=== PATIENT | female | born 1985 | race Caucasian/White ===

== ENCOUNTER 2019-01-16 07:58 | Emergency (ER) | payer OTHER ==
[2019-01-16] MEDS ORDERED: Ketorolac Tromethamine 60 MG/2 ML VIAL ONE (08:19)
--- NOTE | 2019-01-16 08:31 | RAD ---
Exam: Left shoulder 2 views: HISTORY: Injury from trauma FINDINGS: No fracture, dislocation, or other acute process. IMPRESSION: Unremarkable left shoulder.
== END 2019-01-16 08:42 | disposition home or self-care (01) ==
LOC: SCSER 07:58
DX: S20.212A Contusion of left front wall of thorax, initial encounter (principal); W22.8XXA Striking against or struck by other objects, initial encounter; F17.210 Nicotine dependence, cigarettes, uncomplicated; Z79.82 Long term (current) use of aspirin; Z86.73 Personal history of transient ischemic attack (TIA), and cerebral infarction without residual deficits
CPT/HCPCS: 96372; J1885

== ENCOUNTER 2023-03-19 10:56 | Inpatient (IN) | payer BC, SELFPAY ==
[2023-03-19] MEDS ORDERED: Iopamidol-370 76% 500 ML MDV (1 ML CHARGE) ONE (11:00)
[2023-03-19 11:32] LABS: Hematocrit 41.8 % (36.0-47.0); Hemoglobin 14.4 g/dL (12.0-16.0); Mean Corpuscular HGB CONC 34.4 g/dL (32.0-36.0); Mean Corpuscular Hemoglobin 27.7 pg (27.0-31.0); Mean Corpuscular Volume 80.5 fl (78.0-98.0); Mean Platelet Volume 11.5 fL (7.4-10.4); Platelet Count 287 10x3/uL (130-400); RBC Distribution Width 13.2 % (11.5-14.5); Red Blood Cell (RBC) Count 5.19 mill/uL (4.20-5.40)
[2023-03-19 11:35] LABS: Delete Auto Diff?? YES; Manual Diff?? YES
[2023-03-19] MEDS ORDERED: Ondansetron PF 4 MG/2 ML Vial ONE (11:44)
[2023-03-19] MEDS ORDERED: Acetaminophen 325 MG/10.15 ML UDCUP ONE (11:44)
[2023-03-19 11:49] LABS: BHCG - Serum Negative (NEGATIVE); Pregs Control Background? CLEAR/WHITE (CLR/WHITE); Pregs Control Bar Appear? YES (CONTROL BAR)
[2023-03-19 11:51] LABS: INR-International Normal Ratio 1.2; Prothrombin Time 15.4 sec (12.0-14.7)
[2023-03-19 11:57] LABS: Band 12 % (5-11); CellaVision Operator ID LAB.GE; Large Platelets 0.9 % (0-5); Lymphocytes 17 % (21-51); Metamyelocyte 2 % (0-0); Monocytes 9 % (0-10); Neutrophil 40 % (42-75); Platelet Adequacy Comment Platelets Normal; Polychromasia SLIGHT = 2-3 cells HPF (0-2); Reactive Lymphocytes 20 % (0-10); Total Cell Count 107
[2023-03-19 12:04] LABS: ALT (SGPT) 76 U/L (8-55); AST (SGOT) 80 U/L (5-34); Albumin 3.5 g/dL (3.5-5.0); Alkaline Phosphatase 81 U/L (40-110); Anion Gap 16 mmol/L (10-20); BUN (Urea Nitrogen) 10 mg/dL (7.0-18.7); Bilirubin, Total 0.7 mg/dL (0.2-1.2); Calc. Creatinine Clearance 0 mL/min (70-130); Calcium 8.9 mg/dL (7.8-10.44); Carbon Dioxide 24 mmol/L (22-29); Chloride 96 mmol/L (98-107); Estimated GFR 106; Globulin 3.8 g/dL (2.4-3.5); Glucose 102 mg/dL (70-105); Lipase 44 U/L (8-78); Magnesium 1.6 mg/dL (1.6-2.6); Protein, Total 7.3 g/dL (6.0-8.3); Sodium 133 mmol/L (136-145)
[2023-03-19 12:46] LABS: Bilirubin 1+ (Negative); Blood, Urine Negative (Negative); CAUTI Indications for Culture Fever or rigors; Clarity Clear (Clear); Glucose, Urine (Dipstick) Normal (Negative); Ketone, Urine 150 mg/dL (Negative); Leukocyte 25 Leu/uL (Negative); Nitrite Negative (Negative); Protein, Urine (Dipstick) 100 mg/dL (Neg-Trace); RBC/HPF 0-3 HPF (0-3); Squamous Epithelial 0-3 HPF (0-3); pH, Urine 6.5 (5.0-9.0)
[2023-03-19 12:50] LABS: Specific Gravity, Urine 1.052 (1.002-1.036)
[2023-03-19 12:53] LABS: Bacteria/HPF 1+ HPF (None Seen)
[2023-03-19 12:54] LABS: Urine Culture Reflex No No
[2023-03-19] MEDS ORDERED: cefTRIAXone (ROCEPHIN) 1 GM VIAL ONE (14:10)
[2023-03-19] MEDS ORDERED: Senokot S 8.6-50 MG TAB PO PRN (14:28)
[2023-03-19] MEDS ORDERED: Guaifenesin DM 100-10/5 ML UDCUP PO PRN (14:28)
[2023-03-19] MEDS ORDERED: HYDROcodone/Acetaminophen 5/325 mg Tablet PO PRN (14:28)
[2023-03-19] MEDS ORDERED: Ondansetron PF 4 MG/2 ML Vial IVP PRN (14:30)
[2023-03-19] MEDS ORDERED: Ondansetron ODT 4 MG TAB SL PRN (14:30)
[2023-03-19] MEDS ORDERED: Lactated Ringer's 1,000 ML IV SCH (14:30)
[2023-03-19] MEDS ORDERED: Morphine 4 MG/ML VIAL SLOW IVP PRN (14:33)
[2023-03-19] MEDS ORDERED: Potassium Chloride 20 MEQ/100 ML PREMIX BAG ONE (14:52)
[2023-03-19] MEDS ORDERED: Piperacillin/Tazobactam 3.375 GM in Sodium Chloride 0.9% 100 ML IVPB SCH (16:00)
[2023-03-19 16:19] VITALS: BMI 31.4
[2023-03-19 18:28] LABS: Magnesium 1.5 mg/dL (1.6-2.6); Potassium 3.1 mmol/L (3.5-5.1); Sodium 135 mmol/L (136-145)
[2023-03-19] MEDS: Acetaminophen 650 MG/20.3 ML UDCUP PO PRN (19:55)
[2023-03-19] MEDS: Piperacillin/Tazobactam 3.375 GM in Sodium Chloride 0.9% 100 ML IVPB SCH (19:56)
[2023-03-19] MEDS: Famotidine/PF 20 mg/2ml Vial SLOW IVP SCH (19:57)
[2023-03-19] MEDS: Sodium Chloride 0.9% 1,000 ML IV SCH (19:57)
[2023-03-20] MEDS: Acetaminophen 650 MG/20.3 ML UDCUP PO PRN ×5 (00:34→19:59)
[2023-03-20] MEDS: Sodium Chloride 0.9% 1,000 ML IV SCH (03:28)
[2023-03-20] MEDS: Piperacillin/Tazobactam 3.375 GM in Sodium Chloride 0.9% 100 ML IVPB SCH ×3 (03:28→19:59)
[2023-03-20 05:42] LABS: Hematocrit 36.7 % (36.0-47.0); Mean Corpuscular HGB CONC 32.7 g/dL (32.0-36.0); Mean Corpuscular Hemoglobin 27.2 pg (27.0-31.0); Mean Platelet Volume 11.8 fL (7.4-10.4); Platelet Count 198 10x3/uL (130-400); RBC Distribution Width 13.6 % (11.5-14.5); Red Blood Cell (RBC) Count 4.41 mill/uL (4.20-5.40); White Blood Cell (WBC) Count 6.9 10x3/uL (4.8-10.8)
[2023-03-20 05:47] LABS: Delete Auto Diff?? YES; Manual Diff?? YES; Mean Corpuscular Volume 83.2 fl (78.0-98.0)
[2023-03-20 06:07] LABS: ALT (SGPT) 70 U/L (8-55); AST (SGOT) 81 U/L (5-34); Albumin 2.7 g/dL (3.5-5.0); Alkaline Phosphatase 78 U/L (40-110); Anion Gap 13 mmol/L (10-20); BUN (Urea Nitrogen) 6 mg/dL (7.0-18.7); Bilirubin, Total 0.5 mg/dL (0.2-1.2); Calc. Creatinine Clearance 181 mL/min (70-130); Calcium 7.9 mg/dL (7.8-10.44); Carbon Dioxide 23 mmol/L (22-29); Chloride 104 mmol/L (98-107); Estimated GFR 117; Globulin 3.1 g/dL (2.4-3.5); Glucose 78 mg/dL (70-105); Protein, Total 5.8 g/dL (6.0-8.3); Sodium 137 mmol/L (136-145)
[2023-03-20 06:15] LABS: Band 18 % (5-11); CellaVision Operator ID LAB.CLH1; Large Platelets 5.9 % (0-5); Lymphocytes 19 % (21-51); Monocytes 6 % (0-10); Neutrophil 55 % (42-75); Platelet Adequacy Comment Platelets Normal; Polychromasia SLIGHT = 2-3 cells HPF (0-2); Reactive Lymphocytes 3 % (0-10); Total Cell Count 101
[2023-03-20] MEDS ORDERED: Potassium Chloride 40 MEQ in Premix Bag 1 BAG IVPB SCH (08:15)
[2023-03-20 08:40] LABS: CRP (Inflammatory) 4.81 mg/dL (= or < 0.5); Uric Acid 5.8 mg/dL (2.6-6.0)
[2023-03-20] MEDS: Potassium Chloride 20 MEQ in Premix Bag 1 BAG IVPB SCH ×2 (08:58→14:15)
[2023-03-20] MEDS ORDERED: Magnesium 2 GM/50 ML(in water) 2 GM in Premix Bag 1 BAG IVPB SCH (09:00)
[2023-03-20] MEDS: Famotidine/PF 20 mg/2ml Vial SLOW IVP SCH ×2 (09:01→19:58)
[2023-03-20] MEDS ORDERED: Iopamidol-370 76% 500 ML MDV (1 ML CHARGE) ONE (12:27)
[2023-03-20] MEDS ORDERED: Ondansetron PF 4 MG/2 ML Vial IVP SCH (19:45)
[2023-03-21] MEDS: Acetaminophen 650 MG/20.3 ML UDCUP PO PRN ×5 (00:17→20:31)
[2023-03-21] MEDS: Piperacillin/Tazobactam 3.375 GM in Sodium Chloride 0.9% 100 ML IVPB SCH ×3 (05:05→20:31)
[2023-03-21] MEDS: Ondansetron PF 4 MG/2 ML Vial IVP PRN ×3 (05:05→20:31)
[2023-03-21 06:47] LABS: Hematocrit 34.7 % (36.0-47.0); Hemoglobin 11.6 g/dL (12.0-16.0); Manual Diff?? YES; Mean Corpuscular HGB CONC 33.4 g/dL (32.0-36.0); Mean Corpuscular Hemoglobin 27.8 pg (27.0-31.0); Mean Platelet Volume 11.6 fL (7.4-10.4); Platelet Count 204 10x3/uL (130-400); RBC Distribution Width 13.8 % (11.5-14.5); Red Blood Cell (RBC) Count 4.18 mill/uL (4.20-5.40); White Blood Cell (WBC) Count 9.3 10x3/uL (4.8-10.8)
[2023-03-21 06:48] LABS: Delete Auto Diff?? YES
[2023-03-21 07:13] LABS: ALT (SGPT) 90 U/L (8-55); AST (SGOT) 110 U/L (5-34); Albumin 2.7 g/dL (3.5-5.0); Alkaline Phosphatase 112 U/L (40-110); Anion Gap 10 mmol/L (10-20); BUN (Urea Nitrogen) 6 mg/dL (7.0-18.7); Bilirubin, Total 0.6 mg/dL (0.2-1.2); Calc. Creatinine Clearance 181 mL/min (70-130); Calcium 7.9 mg/dL (7.8-10.44); Carbon Dioxide 24 mmol/L (22-29); Chloride 104 mmol/L (98-107); Estimated GFR 117; Globulin 2.9 g/dL (2.4-3.5); Glucose 104 mg/dL (70-105); Magnesium 1.7 mg/dL (1.6-2.6); Phosphorus 2.7 mg/dL (2.3-4.7); Potassium 2.8 mmol/L (3.5-5.1); Protein, Total 5.6 g/dL (6.0-8.3); Sodium 135 mmol/L (136-145)
[2023-03-21 07:14] LABS: Band 19 % (5-11); Burr Cells SLIGHT = 2-5 cells HPF (0-1); CellaVision Operator ID lab.dlt; Eosinophils 1 % (0-10); Lymphocytes 23 % (21-51); Monocytes 9 % (0-10); Neutrophil 42 % (42-75); Platelet Adequacy Comment Platelets Normal; Poikilocytosis SLIGHT = 6-15 cells HPF (0-5); Polychromasia SLIGHT = 2-3 cells HPF (0-2); Reactive Lymphocytes 7 % (0-10); Total Cell Count 101
[2023-03-21] MEDS: Famotidine/PF 20 mg/2ml Vial SLOW IVP SCH (08:52)
[2023-03-21] MEDS: Sodium Chloride 0.9% 1,000 ML IV SCH ×3 (08:54→23:25)
[2023-03-21] MEDS: Potassium Chloride 20 MEQ in Premix Bag 1 BAG IVPB SCH ×5 (08:54→22:57)
[2023-03-21] MEDS: Metoclopramide HCl 10 MG/2 ML VIAL IVP PRN ×2 (12:54→18:22)
[2023-03-21 15:21] LABS: Creatinine, Urine 283.05 mg/dL (47-110)
[2023-03-22] MEDS: Metoclopramide HCl 10 MG/2 ML VIAL IVP PRN (00:01)
[2023-03-22] MEDS: Acetaminophen 650 MG/20.3 ML UDCUP PO PRN ×4 (00:01→18:39)
[2023-03-22] MEDS: Piperacillin/Tazobactam 3.375 GM in Sodium Chloride 0.9% 100 ML IVPB SCH ×3 (04:42→20:47)
[2023-03-22] MEDS: Pantoprazole 40 MG VIAL IVP SCH (07:59)
[2023-03-22] MEDS: Sodium Chloride 0.9% 1,000 ML IV SCH ×3 (08:00→18:27)
[2023-03-22] MEDS: Potassium Chloride 20 MEQ in Premix Bag 1 BAG IVPB SCH ×3 (08:18→13:16)
[2023-03-22] MEDS ORDERED: Magnesium 2 GM/50 ML(in water) 2 GM in Premix Bag 1 BAG IVPB SCH (09:00)
[2023-03-22 12:17] LABS: Hemoglobin 11.8 g/dL (12.0-16.0); Manual Diff?? YES; Mean Corpuscular HGB CONC 32.8 g/dL (32.0-36.0); Mean Corpuscular Hemoglobin 27.3 pg (27.0-31.0); Mean Corpuscular Volume 83.1 fl (78.0-98.0); Mean Platelet Volume 11.1 fL (7.4-10.4); Platelet Count 196 10x3/uL (130-400); RBC Distribution Width 14.3 % (11.5-14.5); Red Blood Cell (RBC) Count 4.33 mill/uL (4.20-5.40); White Blood Cell (WBC) Count 10.1 10x3/uL (4.8-10.8)
[2023-03-22 12:21] LABS: Delete Auto Diff?? YES
[2023-03-22 12:33] LABS: INR-International Normal Ratio 1.3; Prothrombin Time 16.3 sec (12.0-14.7)
[2023-03-22 12:34] LABS: PTT 37.4 sec (22.9-36.1)
[2023-03-22 12:37] LABS: D-Dimer Test 2.08 *mcg/mL (0.27-0.43)
[2023-03-22 12:42] LABS: ALT (SGPT) 107 U/L (8-55); AST (SGOT) 128 U/L (5-34); Albumin 2.4 g/dL (3.5-5.0); Alkaline Phosphatase 148 U/L (40-110); Anion Gap 10 mmol/L (10-20); BUN (Urea Nitrogen) 8 mg/dL (7.0-18.7); Bilirubin, Total 0.6 mg/dL (0.2-1.2); Calc. Creatinine Clearance 190 mL/min (70-130); Calcium 7.8 mg/dL (7.8-10.44); Carbon Dioxide 22 mmol/L (22-29); Chloride 107 mmol/L (98-107); Estimated GFR 119; Globulin 3.1 g/dL (2.4-3.5); Glucose 93 mg/dL (70-105); Potassium 3.4 mmol/L (3.5-5.1); Protein, Total 5.5 g/dL (6.0-8.3); Sodium 136 mmol/L (136-145)
[2023-03-22 12:46] LABS: CRP (Inflammatory) 3.96 mg/dL (= or < 0.5)
[2023-03-22 12:47] LABS: Complement-C4 30.6 mg/dL (15-57)
[2023-03-22 12:53] LABS: Band 8 % (5-11); Burr Cells MODERATE= 6-15 cells HPF (0-1); CellaVision Operator ID LAB.KB; Large Platelets 2.9 % (0-5); Lymphocytes 20 % (21-51); Macrocytosis SLIGHT = 6-15 cells HPF (0-5); Monocytes 12 % (0-10); Neutrophil 49 % (42-75); Ovalocytes SLIGHT = 2-5 cells HPF (0-1); Platelet Adequacy Comment Platelets Normal; Polychromasia SLIGHT = 2-3 cells HPF (0-2); Reactive Lymphocytes 12 % (0-10); Smudge Cells 56.9 %; Total Cell Count 102
[2023-03-22 13:06] LABS: Hep B Surf Ag Non-Reactive S/CO (NonReactive)
[2023-03-22 13:07] LABS: HBSAg Index 0.31 S/CO (0-0.99); Hep C IgG Ab Non-Reactive S/CO (NonReactive)
[2023-03-22 13:08] LABS: Hep C Index 0.25 S/CO (0-0.79)
[2023-03-22 13:09] LABS: Hep A IgM AB Non-Reactive S/CO (NonReactive)
[2023-03-22 13:11] LABS: Hep A IgM S/CO 0.19 S/CO (0-0.79)
[2023-03-22 13:12] LABS: Hepatitis B Core IgM Abs Non-Reactive S/CO (NonReactive)
[2023-03-22 13:14] LABS: HBCM Index 0.18 S/CO (0-0.79)
[2023-03-22 14:19] LABS: EliA Vaculitis New Method **** NEW METHOD ****; Mitochondrial Ab 1.9 U/mL (<4 Negative)
[2023-03-22 16:56] LABS: HIV (1/2) Antibody/Antigen Non-Reactive (NonReactive); HIV 1/2 INDEX 0.16 S/CO (<1.00)
[2023-03-23] MEDS: Acetaminophen 650 MG/20.3 ML UDCUP PO PRN (01:11)
[2023-03-23 02:51] LABS: Ferritin 703.09 ng/mL (10-291)
[2023-03-23] MEDS: Sodium Chloride 0.9% 1,000 ML IV SCH ×2 (04:10→12:30)
[2023-03-23 08:41] LABS: ALT (SGPT) 95 U/L (8-55); AST (SGOT) 109 U/L (5-34); Albumin 2.3 g/dL (3.5-5.0); Alkaline Phosphatase 157 U/L (40-110); Anion Gap 8 mmol/L (10-20); BUN (Urea Nitrogen) 8 mg/dL (7.0-18.7); Bilirubin, Total 0.5 mg/dL (0.2-1.2); Calc. Creatinine Clearance 206 mL/min (70-130); Calcium 7.8 mg/dL (7.8-10.44); Carbon Dioxide 27 mmol/L (22-29); Chloride 106 mmol/L (98-107); Estimated GFR 121; Globulin 2.9 g/dL (2.4-3.5); Glucose 84 mg/dL (70-105); Potassium 3.4 mmol/L (3.5-5.1); Protein, Total 5.2 g/dL (6.0-8.3); Sodium 138 mmol/L (136-145)
[2023-03-23] MEDS: Pantoprazole 40 MG VIAL IVP SCH (09:45)
[2023-03-23] MEDS ORDERED: Potassium Bicarbonate/Cit Ac 20 MEQ TAB PER TUBE SCH (12:00)
[2023-03-23] MEDS: Potassium Chloride 20 MEQ TAB PO SCH ×2 (12:32→14:04)
[2023-03-23] MEDS: Metoclopramide HCl 10 MG/2 ML VIAL IVP PRN (12:41)
[2023-03-23] MEDS ORDERED: Potassium Chloride 20 MEQ in Premix Bag 1 BAG IVPB SCH (16:00)
[2023-03-24] MEDS: Acetaminophen 650 MG/20.3 ML UDCUP PO PRN (02:28)
[2023-03-24] MEDS: Pantoprazole 40 MG VIAL IVP SCH (09:43)
[2023-03-24 11:32] VITALS: BP 111/72; TEMP 98.7
[2023-03-25 13:30] LABS: DRVVT Confirm 40.4
[2023-03-25 14:16] LABS: HEX PHOS LA Tube 2 41.1 SEC; Hexagonal Phospholipid Neut 11.9 SEC (0-8.0)
[2023-03-26 12:50] LABS: ANA Symphony (Qualitative) Negative (Negative); ANA Symphony (Quantitative) 0.6 Ratio (< 0.7 Negative); Cardiolipin IgG Ab 1.9 GPL-U/mL (<10 Negative); Cardiolipin IgM Ab 5.7 MPL-U/mL (<10 Negative); EliA APS New Method **** NEW METHOD ****; beta-2-Glycoprotein I IgG Ab 2.3 U/mL (<7 Negative); beta-2-Glycoprotein I IgM Abs 2.8 U/mL (<7 Negative); dsDNA IgG Antibody 1.1 IU/mL (<10 Negative)
== END 2023-03-24 12:03 | disposition home or self-care (01) | DRG 872 ==
LOC: ERS 10:56 → SURG A 14:18
PROVIDERS: ADMIT Hospitalist; ATTEND Internal Medicine
DX: A41.9 Sepsis, unspecified organism (principal); J98.11 Atelectasis; E87.1 Hypo-osmolality and hyponatremia; I82.819 Embolism and thrombosis of superficial veins of unspecified lower extremity; I10 Essential (primary) hypertension; E87.6 Hypokalemia; E86.0 Dehydration; Z90.49 Acquired absence of other specified parts of digestive tract; Z98.84 Bariatric surgery status; Z86.73 Personal history of transient ischemic attack (TIA), and cerebral infarction without residual deficits
CPT/HCPCS: 36415; 71045; 71260; 74177; 76999; 80053; 80074; 81001; 82103; 82390; 82533; 82570; 82728; 83516; 83540; 83550; 83605; 83615; 83690; 83735; 84100; 84145; 84156; 84443; 84550; 84703; 85025; 85060; 85379; 85598; 85610; 85613; 85652; 85730; 86015; 86038; 86140; 86146; 86147; 86160; 86225; 87040; 87086; 87389; 93970; 94760; 96361; 96365; 96375; C9113; J0696; J1650; J2405; J2543; J2765; J3475; J3480; J3490; J7050; Q9967; S0028